=== PATIENT | male | born 1980 | race Caucasian/White ===

== ENCOUNTER 2017-05-22 15:14 | Emergency (ER) | payer BC ==
[2017-05-22 15:21] VITALS: BP 147/85
[2017-05-22] MEDS ORDERED: Sodium Chloride 0.9% 10 ML Syringe FLUSH PRN (15:48)
--- NOTE | 2017-05-22 15:54 | EDM.PDOC ---
ED HPI GENERAL MEDICAL PROBLEM - General Chief Complaint: Lower Extremity Injury/Pain Stated Complaint: POSS BLOOD CLOT IN LEFT LEG Time Seen by Provider: 05/22/17 15:30 Source of Information: Reports: Patient History Limitations: Reports: No Limitations - History of Present Illness INITIAL COMMENTS - FREE TEXT/NARRATIVE: Patient is a 37 year old male who presents to the E.D. complaining of pain to the left inner leg, sob, and chest pain. States it started this past Monday after falling out of bed. States he landed on both knees. Does not recall hitting the inner aspect of the left leg. Pain persisted throughout the day. That evening developed increased redness with sob and pleuritic chest pain. States the pain to the chest worsens with taking a deep breath. States since Monday feels sob. Redness has remained localized. He denies fever/chills, n/v , cough, runny nose, sore throat, abdmoninal pain, or hx of pe/dvt. Patient was evaluated at the [facility] today. Instructed to come to the E.D. in fear he may have a DVT and/or PE. Left Leg Pain Score (Numeric/FACES): 8 - Related Data Allergies Allergy/AdvReac Type Severity Reaction Status Date / Time No Known Allergies Allergy Verified 05/22/17 15:21 Home Meds: Home Meds Albuterol Sulfate 2.5 mg IH 6XDAY PRN 05/22/17 [History] Albuterol [Ventolin HFA] 8 gm INH Q6H PRN 05/22/17 [History] Sildenafil Citrate [Sildenafil] 100 mg PO ASDIRECTED PRN 05/22/17 [History] Past Medical History HEENT History: Reports: Impaired Vision Other HEENT History: wears corrective lenses Respiratory History: Reports: Asthma Genitourinary History: Reports: Other (See Below) Other Genitourinary History: rhabdomylsis Dermatologic History: Reports: Cellulitis - Past Surgical History HEENT Surgical History: Reports: Tonsillectomy Male Surgical History: Reports: None Social & Family History - Tobacco Use Smoking Status *Q: Current Every Day Smoker Years of Tobacco use: 16 Packs/Tins Daily: 1 Used Tobacco, but Quit: No Second Hand Smoke Exposure: No - Caffeine Use Caffeine Use: Reports: Coffee, Energy Drinks - Recreational Drug Use Recreational Drug Use: No Review of Systems - Review of Systems Review Of Systems: See Below Respiratory: Reports: Shortness of Breath, Pleuritic Chest Pain. Denies: Wheezing, Cough, Sputum, Hemoptysis Cardiovascular: Reports: Chest Pain. Denies: Lightheadedness, Palpitations, Syncope GI/Abdominal: Denies: Abdominal Pain, Diarrhea, Nausea Musculoskeletal: Reports: No Symptoms Neurological: Reports: No Symptoms ED EXAM, GENERAL - Physical Exam Exam: See Below Exam Limited By: No Limitations General Appearance: Alert, WD/WN, No Apparent Distress, Obese Ears: Hearing Grossly Normal Nose: No Blood Throat/Mouth: Normal Inspection, Normal Voice, No Airway Compromise Neck: Normal Inspection, Supple Respiratory/Chest: No Respiratory Distress, Lungs Clear, Normal Breath Sounds, No Accessory Muscle Use, Chest Non-Tender Cardiovascular: Normal Peripheral Pulses, Regular Rate, Rhythm, No Murmur GI/Abdominal: Normal Bowel Sounds, Soft, Non-Tender, No Organomegaly, No Distention Back Exam: Normal Inspection Extremities: No Pedal Edema, Normal Capillary Refill, Other (Area of erythema to the left medial aspect of the lower leg proximal to the knee. Swelling, increased warmth, and pain with palpation. ) Neurological: Alert, Oriented, CN II-XII Intact, Normal Cognition, No Motor/ Sensory Deficits Psychiatric: Normal Affect, Normal Mood Skin Exam: Warm, Dry, Intact Course - Vital Signs Last Recorded V/S: Last Vital Signs Temp 97 F 05/22/17 15:19 Pulse 101 H 05/22/17 15:19 Resp 20 05/22/17 15:19 BP 147/85 H 05/22/17 15:19 Pulse Ox 94 L 05/22/17 15:19 - Orders/Labs/Meds Labs: Laboratory Tests 05/22/17 05/22/17 05/22/17 Range/Units 15:50 15:50 15:50 WBC 11.59 H (4.23-9.07) K/mm3 RBC 5.35 (4.63-6.08) M/mm3 Hgb 14.6 (13.7-17.5) gm/L Hct 46.5 (40.1-51.0) % MCV 86.9 (79.0-92.2) fl MCH 27.3 (25.7-32.2) pg MCHC 31.4 L (32.2-35.5) g/dl RDW Std Deviation 46.0 H (35.1-43.9) fL Plt Count 242 (163-337) K/mm3 MPV 9.8 (9.4-12.3) fl Neut % (Auto) 66.2 (34.0-67.9) % Lymph % (Auto) 22.6 (21.8-53.1) % [place] % (Auto) 6.2 (5.3-12.2) % Eos % (Auto) 3.9 (0.8-7.0) Baso % (Auto) 0.3 (0.1-1.2) % Neut # (Auto) 7.68 H (1.78-5.38) K/mm3 Lymph # (Auto) 2.62 (1.32-3.57) K/mm3 [place] # (Auto) 0.72 (0.30-0.82) K/mm3 Eos # (Auto) 0.45 (0.04-0.54) K/mm3 Baso # (Auto) 0.03 (0.01-0.08) K/mm3 PT 10.4 (8.0-13.0) SECONDS INR 0.96 APTT 25 (22-36) SECONDS D-Dimer, Quantitative 1.04 H (0.19-0.59) mg/L Sodium 141 (136-145) mEq/L Potassium 3.9 (3.5-5.1) mEq/L Chloride 104 (98-107) mEq/L Carbon Dioxide 32 (21-32) mEq/L Anion Gap 8.9 (5-15) BUN 15 (7-18) mg/dL Creatinine 1.0 (0.7-1.3) mg/dL Est Cr Clr Drug Dosing 109.81 mL/min Estimated GFR (MDRD) > 60 (>60) mL/min BUN/Creatinine Ratio 15.0 (14-18) Glucose 104 (74-106) mg/dL Calcium 9.3 (8.5-10.1) mg/dL Total Bilirubin 0.4 (0.2-1.0) mg/dL AST 38 H (15-37) U/L ALT 27 (16-63) U/L Alkaline Phosphatase 105 (46-116) U/L C-Reactive Protein 2.8 H* (<1.0) mg/dL Total Protein 7.8 (6.4-8.2) g/dl Albumin 3.4 (3.4-5.0) g/dl Globulin 4.4 gm/dL Albumin/Globulin Ratio 0.8 L (1-2) Meds: Medications Discontinued Medications Generic Name Dose Route Start Last Admin Trade Name Freq PRN Reason Stop Dose Admin Sodium Chloride 1,000 mls @ 150 mls/hr 05/22/17 16:00 05/22/17 16:27 Normal Saline IV 150 mls/hr ASDIRECTED SANTI Administration Sodium Chloride 100 mls @ 60 mls/hr 05/22/17 17:00 05/22/17 17:34 Normal Saline IV 60 mls/hr ASDIRECTED SANTI Administration Iopamidol 50 ml 05/22/17 16:51 Isovue-370 (76%) IVPUSH 05/22/17 16:52 ONETIME ONE Iopamidol 100 ml 05/22/17 16:51 05/22/17 17:34 Isovue-370 (76%) IVPUSH 05/22/17 16:52 100 ml ONETIME ONE Administration Sodium Chloride 10 ml 05/22/17 15:48 05/22/17 16:27 Saline Flush FLUSH 10 ml ASDIRECTED PRN Administration Keep Vein Open Sodium Chloride 10 ml 05/22/17 16:51 05/22/17 17:34 Saline Flush FLUSH 05/22/17 16:52 10 ml ONETIME ONE Administration - Re-Assessments/Exams Free Text/Narrative Re-Assessment/Exam: Peripheral IV will be established with blood work obtained including CBC, chem 14,inr , PTT, CRP, and d-dimer. Chest x-ray will be obtained along with EKG. Ekg: Sinus rhythm at a rate of 97 with MS interval 203, QTC of 477, no acute ST changes noted. CXR: No acute findings noted. Labs reviewed: Labs reviewed: White blood cell count 9.59, hemoglobin 17.6, platelets 242, d-dimer elevated 1.04, sodium 141, potassium 3.9, 1.0, and CRP 2.8. 1640 Ddimer 1.04 05/22/17 16:43 Ordered CTA of the chest. 1801 CTA of the chest reviewed: Patient body habitus diminishes details as described above. No definite pulmonary emboli are seen. Scattered groundglass appearance bleed to represent atelectasis from the body's habitus. No additional abnormalities identified. 05/22/17 18:01 VL duplex left lower extremity ordered. 05/22/17 19:55 ultrasound of the left lower leg impression: Less than optimal study distally within the veins. Nothing definite is seen to indicate deep venous thrombosis. Clot within the several superficial varicosities within the medial right knee compatible superficial thrombophlebitis. Will discharge patient home with instructions as documented. Departure - Departure Time of Disposition: 19:56 Disposition: Home, Self-Care 01 Condition: Good Clinical Impression: Superficial thrombophlebitis of left leg - Discharge Information Referrals: Mariela Miranda FILTERER [Primary Care Provider] - Forms: ED Department Discharge, ED Return to Work/School Form Additional Instructions: Ultrasound of the left lower leg revealed you have superficial thrombophlebitis. Treatment is symptomatic care including NSAIDs ibuprofen 600 mg every 6 hours, taking with copious amounts of water and food. Can apply warm compresses to the affected area as needed throughout the day to promote resolution. Refrain from any activities that cause worsening pain. See your PCP in the next week for reevaluation to ensure resolution. Return to the ED for any new or worsening symptoms as discussed.
[2017-05-22] MEDS ORDERED: Sodium Chloride 0.9% 1,000 ML IV SCH (16:00)
[2017-05-22] MEDS ORDERED: Sodium Chloride 0.9% 10 ML Syringe FLUSH ONE (16:51)
[2017-05-22] MEDS ORDERED: Iopamidol 755 MG/ML 50 ML Bottle IVPUSH ONE (16:51)
[2017-05-22] MEDS ORDERED: Iopamidol 755 Mg/ML 100 ML Bottle IVPUSH ONE (16:51)
[2017-05-22] MEDS ORDERED: Sodium Chloride 0.9% 100 ML IV SCH (17:00)
--- NOTE | 2017-05-22 17:53 | CT ---
CT chest Technique: Multiple axial sections through the chest were obtained. Intravenous contrast was utilized. Study has been performed as a pulmonary angiogram protocol. Limitations: There is artifact secondary to patient body habitus slightly limiting study for small pulmonary emboli. Findings: No discrete filling defects are appreciated to indicate definite pulmonary embolism. Small portion of the visualized upper abdominal structures are grossly unremarkable. Groundglass appearance is scattered within both lungs most likely representing atelectasis. Lungs otherwise are clear. No pleural effusions are seen. Mediastinum and hilar regions show no adenopathy or mass. No axillary adenopathy is seen. Impression: 1. Patient body habitus diminishes details as described above. 2. No definite pulmonary emboli are seen. 3. Scattered groundglass appearance believed to represent atelectasis from the patient's body habitus. 4. No additional abnormality is identified. Diagnostic code #2
--- NOTE | 2017-05-22 19:41 | US ---
Left lower extremity deep venous ultrasound: Duplex and color flow imaging was obtained left common femoral, greater saphenous, superficial femoral, popliteal, posterior tibial and peroneal veins. Right common femoral vein also was evaluated. Findings: Distal femoral vein was difficult to compress as well as peroneal veins due to patient body habitus. There is augmentation seen throughout the deep veins. Phasic flow is seen within the common femoral through popliteal vein. Right common femoral vein is patent. There is clot within superficial varicosities within the area of the right medial knee. Impression: 1. Less than optimal study distally within the veins. Nothing definite is seen to indicate deep venous thrombosis. 2. Clot within several superficial varicosities within the medial right knee compatible with superficial thrombophlebitis. Diagnostic code #3
--- NOTE | 2017-05-23 07:57 | CR ---
Chest: Portable view of the chest was obtained. Comparison: Previous chest x-ray of 11/22/16. Heart size and mediastinum are within normal limits. Lungs are clear. Bony structures are grossly intact. Impression: 1. Nothing acute is appreciated on portable chest x-ray. Diagnostic code #1
== END 2017-05-22 20:24 | disposition home or self-care (01) ==
LOC: JD.ED 15:14
DX: I80.02 Phlebitis and thrombophlebitis of superficial vessels of left lower extremity (principal); J45.909 Unspecified asthma, uncomplicated; F17.210 Nicotine dependence, cigarettes, uncomplicated; Z98.890 Other specified postprocedural states
CPT/HCPCS: 36415; 71010; 71275; 80053; 85025; 85379; 85610; 85730; 86140; 93005; 93971; 96360; 96361; 99284; J7030; J7040; J7050; Q9967

== ENCOUNTER 2022-02-21 07:11 | Emergency (ER) | payer BC ==
[2022-02-21 07:28] VITALS: BP 142/97; PULSE 84
[2022-02-21] MEDS ORDERED: Ondansetron 4 MG/2 ML SDV IVPUSH ONE (07:32)
[2022-02-21] MEDS ORDERED: Sodium Chloride 0.9% 10 ML Syringe FLUSH PRN (07:32)
[2022-02-21] MEDS ORDERED: Sodium Chloride 0.9% 1,000 ML IV STA (07:32)
[2022-02-21] MEDS ORDERED: Iopamidol 612 MG/ML 100 ML Bottle IVPUSH ONE (07:40)
[2022-02-21] MEDS ORDERED: Iopamidol 612 MG/ML 50 ML SDV IVPUSH ONE (07:40)
[2022-02-21] MEDS: Sodium Chloride 0.9% 10 ML Syringe FLUSH PRN ×2 (07:49→08:15)
[2022-02-21 08:45] LABS: ESTIMATED GFR > 60 mL/min (>60)
[2022-02-21] MEDS ORDERED: Ketorolac 30 MG/ML SDV IVPUSH ONE (09:43)
== END 2022-02-21 10:10 | disposition home or self-care (01) ==
LOC: JD.ED 07:11
DX: K62.5 Hemorrhage of anus and rectum (principal); R10.31 Right lower quadrant pain; R11.0 Nausea; J45.909 Unspecified asthma, uncomplicated; I10 Essential (primary) hypertension; E11.9 Type 2 diabetes mellitus without complications; F17.210 Nicotine dependence, cigarettes, uncomplicated; E66.9 Obesity, unspecified; Z68.43 Body mass index [BMI] 50.0-59.9, adult; Z79.899 Other long term (current) drug therapy; Z79.01 Long term (current) use of anticoagulants; Z79.84 Long term (current) use of oral hypoglycemic drugs; Z86.16 Personal history of COVID-19
CPT/HCPCS: 36415; 74177; 80053; 81001; 83690; 85025; 96374; 96375; 99285; J1885; J2405; J3490; J7030; Q9967; 99284

== ENCOUNTER 2022-03-11 20:30 | Emergency (ER) | payer BC ==
[2022-03-11] MEDS ORDERED: Ondansetron 4 MG Tab.DIS PO ONE (21:10)
[2022-03-11] MEDS ORDERED: Acetaminophen/HYDROcodone 325-5 MG Tab PO ONE (21:10)
[2022-03-11 21:11] VITALS: PULSE 96
[2022-03-11 22:45] VITALS: BP 127/76
== END 2022-03-11 22:50 | disposition home or self-care (01) ==
LOC: JD.ED 20:30
DX: S16.1XXA Strain of muscle, fascia and tendon at neck level, initial encounter (principal); S09.90XA Unspecified injury of head, initial encounter; I10 Essential (primary) hypertension; E11.9 Type 2 diabetes mellitus without complications; F17.210 Nicotine dependence, cigarettes, uncomplicated; E66.9 Obesity, unspecified; Z79.01 Long term (current) use of anticoagulants; Z79.899 Other long term (current) drug therapy; Z68.43 Body mass index [BMI] 50.0-59.9, adult; W18.09XA Striking against other object with subsequent fall, initial encounter
CPT/HCPCS: 70450; 72125; 99284; A9270

== ENCOUNTER 2023-02-20 10:04 | Emergency (ER) | payer BC ==
[2023-02-20 10:49] LABS: BASOPHILS ABSOLUTE AUTO 0.06 K/mm3 (0.01-0.08); BASOPHILS PERCENT AUTO 0.5 % (0.1-1.2); EOSINOPHILS ABSOLUTE AUTO 0.75 K/mm3 (0.04-0.54); HEMATOCRIT 45.7 % (40.1-51.0); HEMOGLOBIN 14.8 gm/dl (13.7-17.5); IMMATURE GRAN ABSOLUTE AUTO 0.16 K/mm3 (0.00-0.10); IMMATURE GRAN PERCENT AUTO 1.3 % (<=1.0); LYMPHOCYTES ABSOLUTE AUTO 3.52 K/mm3 (1.32-3.57); LYMPHOCYTES PERCENT AUTO 28.2 % (21.8-53.1); MEAN CORPUSCULAR HEMOGLOBIN 29.1 pg (25.7-32.2); MEAN CORPUSCULAR HGB CONC 32.4 g/dl (32.2-35.5); MEAN CORPUSCULAR VOLUME 89.8 fl (79.0-92.2); MEAN PLATELET VOLUME 9.7 fl (9.4-12.3); MONOCYTES PERCENT AUTO 6.4 % (5.3-12.2); NEUTROPHILS ABSOLUTE AUTO 7.19 K/mm3 (1.78-5.38); NEUTROPHILS PERCENT AUTO 57.6 % (34.0-67.9); PLATELET COUNT,PLT 231 K/mm3 (163-337); RED BLOOD CELL COUNT 5.09 M/mm3 (4.63-6.08); WHITE BLOOD CELL COUNT,WBC 12.48 K/mm3 (4.23-9.07)
[2023-02-20 11:08] LABS: HEMOGLOBIN A1C 6.7 %
[2023-02-20 11:11] LABS: A/G RATIO 0.8 (1-2); ALBUMIN 3.3 g/dl (3.4-5.0); ANION GAP 8.2 (5-15); BILIRUBIN TOTAL 0.5 mg/dL (0.2-1.0); BUN/CREATININE RATIO 18.9 (14-18); CALCIUM 9.2 mg/dL (8.5-10.1); CREATININE 0.9 mg/dL (0.7-1.3); EST CRCL DRUG DOSING (CG) 119.75 mL/min; MAGNESIUM 1.8 mg/dL (1.8-2.4); POTASSIUM,K 4.2 mEq/L (3.5-5.1); PROTEIN TOTAL,TP 7.7 g/dl (6.4-8.2)
[2023-02-20 12:38] VITALS: BP 138/79; PULSE 86
== END 2023-02-20 12:25 | disposition home or self-care (01) ==
LOC: JD.ED 10:04
DX: M79.662 Pain in left lower leg (principal); I10 Essential (primary) hypertension; J45.909 Unspecified asthma, uncomplicated; E11.9 Type 2 diabetes mellitus without complications; E66.9 Obesity, unspecified; Z68.43 Body mass index [BMI] 50.0-59.9, adult; Z86.16 Personal history of COVID-19; Z79.899 Other long term (current) drug therapy; Z79.01 Long term (current) use of anticoagulants; Z79.84 Long term (current) use of oral hypoglycemic drugs
CPT/HCPCS: 36415; 80053; 83036; 83735; 85025; 85379; 99283